=== PATIENT | female | born 1975 | race Caucasian/White ===

== ENCOUNTER 2019-03-01 00:17 | Emergency (ER) | payer MEDICAID, OTHER ==
[~2019-03-01] VITALS: Ht 162.6 cm; Wt 101.7 kg
[2019-03-01 01:15] LABS: BASOPHILS # (AUTO) 0.05 x10^3/uL (0-0.1); BASOPHILS % (AUTO) 1 % (0-1); EOSINOPHILS # (AUTO) 0.23 x10^3/uL (0-0.4); EOSINOPHILS % (AUTO) 3 % (1-7); LYMPHOCYTES % (AUTO) 33 % (22-44); MD NO; MEAN CORPUSCULAR HEMOGLOBIN 29.6 pg (27.0-34.8); MEAN CORPUSCULAR VOLUME 87.1 fL (80-100); MEAN PLATELET VOLUME 7.5 fL (7.4-10.4); MONOCYTES # (AUTO) 0.66 x10^3/uL (0.2-0.8); MONOCYTES % (AUTO) 8 % (2-9); NEUTROPHILS # (AUTO) 4.92 x10^3/uL (1.8-6.8); NEUTROPHILS % (AUTO) 56 % (42-75); PLATELET COUNT 280 x10^3/uL (130-400); RED BLOOD COUNT 4.42 x10^6/uL (3.82-5.3); RED CELL DISTRIBUTION WIDTH 14.2 % (9.6-15.2)
[2019-03-01 01:23] LABS: ALBUMIN 3.5 g/dL (3.4-5.0); ANION GAP 6 mmol/L (5-15); CALCIUM 8.7 mg/dL (8.5-10.1); CHLORIDE 107 mmol/L (98-107); CREATININE 0.85 mg/dL (0.55-1.02)
[2019-03-01 01:27] LABS: TROPONIN I < 0.015 ng/mL (0.000-0.045)
--- NOTE | 2019-03-01 01:37 | NUR ---
Pt report from Juan Luis rankin. No immediate needs from pt. Awaiting lab results.
--- NOTE | 2019-03-01 01:56 | NUR ---
This rn to d/c pt. Pt states she changed mind on steroid shot. This rn talked to md. awaiting meds.
[2019-03-01 02:00] VITALS: BP 136/81
[2019-03-01] MEDS ORDERED: TRIAMCINOLONE ACETONIDE 40 MG/ML, 1ML IM ONE (02:00)
--- NOTE | 2019-03-01 02:06 | NUR ---
Awaiting med from rx.
== END 2019-03-01 02:44 | disposition home or self-care (01) ==
LOC: ED 00:57
DX: R07.89 Other chest pain (principal); R06.02 Shortness of breath
CPT/HCPCS: 36415; 71045; 80048; 82040; 84484; 84703; 85025; 93005; 96372; 99284; J3301

== ENCOUNTER 2020-05-06 13:58 | Emergency (ER) | payer MEDICAID ==
[~2020-05-06] VITALS: Ht 162.6 cm; Wt 104.4 kg
--- NOTE | 2020-05-06 14:04 | NUR ---
Pt ambulatory to room from [facility]. Pt given UA cup and clean catch collection instructions. UA ordered per protocol.
--- NOTE | 2020-05-06 14:21 | NUR ---
THIS IS A 44 YEAR OLD FEMALE WHO C/O OF HISTORY OF FREQUENT UTIs, C/O OF RIGTH FLANK PAIN, AND DISCOLORED URINE X 7 DAYS. OBTAINED URINE AND SENT TO LAB
[2020-05-06] MEDS ORDERED: KETOROLAC 30 MG/1 ML ONE (14:26)
[2020-05-06] MEDS ORDERED: FAMOTIDINE 20 MG/2 ML ONE (14:27)
[2020-05-06] MEDS ORDERED: ONDANSETRON 2MG/ML, 2ML ONE (14:27)
[2020-05-06 14:28] LABS: HCG UR SG 1.026 (1.003-1.030); MICROSCOPIC INDICATED
[2020-05-06] MEDS ORDERED: FAMOTIDINE 20 MG/2 ML IV ONE (14:30)
[2020-05-06] MEDS ORDERED: SODIUM CHLORIDE 0.9% 1,000ML IVBOLUS ONE (14:30)
[2020-05-06] MEDS ORDERED: ONDANSETRON 2MG/ML, 2ML IVPush ONE (14:30)
[2020-05-06] MEDS ORDERED: SODIUM CHLORIDE FLUSH 10ML SYR IVF ONE (14:30)
[2020-05-06] MEDS ORDERED: KETOROLAC 30 MG/1 ML IVPush ONE (14:30)
[2020-05-06 14:41] LABS: MEAN CORPUSCULAR HEMOGLOBIN 29.3 pg (27.0-34.8); MEAN CORPUSCULAR HGB CONC 33.7 g/dL (32.4-35.8); MEAN PLATELET VOLUME 7.6 fL (7.4-10.4); PLATELET COUNT 203 x10^3/uL (130-400); RED BLOOD COUNT 4.11 x10^6/uL (3.82-5.3); RED CELL DISTRIBUTION WIDTH 14.3 % (9.6-15.2)
[2020-05-06 14:54] LABS: BASOPHILS # (AUTO) 0.04 x10^3/uL (0-0.1); BASOPHILS % (AUTO) 0 % (0-1); EOSINOPHILS # (AUTO) 0.07 x10^3/uL (0-0.4); EOSINOPHILS % (AUTO) 1 % (1-7); LYMPHOCYTES # (AUTO) 1.28 x10^3/uL (1-3.4); LYMPHOCYTES % (AUTO) 12 % (22-44); MD SCAN; MONOCYTES # (AUTO) 1.67 x10^3/uL (0.2-0.8); MONOCYTES % (AUTO) 16 % (2-9); NEUTROPHILS # (AUTO) 7.24 x10^3/uL (1.8-6.8); NEUTROPHILS % (AUTO) 70 % (42-75)
[2020-05-06 14:55] LABS: ALANINE AMINOTRANSFERASE 15 U/L (12-78); ALBUMIN 2.9 g/dL (3.4-5.0); ANION GAP 3 mmol/L (5-15); CALCIUM 9.4 mg/dL (8.5-10.1); CHLORIDE 103 mmol/L (98-107); CREATININE 1.36 mg/dL (0.55-1.02)
[2020-05-06 14:57] LABS: ALKALINE PHOSPHATASE 106 U/L (45-117); BILIRUBIN,TOTAL 0.6 mg/dL (0.2-1.0); TOTAL PROTEIN 7.8 g/dL (6.4-8.2)
[2020-05-06 15:21] VITALS: BP 120/78
--- NOTE | 2020-05-06 15:21 | NUR ---
PT STATES SHE FEELS BETTER, WARM BLANKET GIVEN, VERBALIZED NO NEEDS AT THIS TIME
--- NOTE | 2020-05-06 15:53 | NUR ---
Patient/Caregiver given discharge instructions and they have confirmed that they understand the instructions. Patient ambulatory with steady gait.
== END 2020-05-06 16:10 | disposition home or self-care (01) ==
LOC: ED 14:47
DX: N30.00 Acute cystitis without hematuria (principal); R10.11 Right upper quadrant pain; R11.2 Nausea with vomiting, unspecified; R19.7 Diarrhea, unspecified; F17.200 Nicotine dependence, unspecified, uncomplicated
CPT/HCPCS: 36415; 74021; 76700; 80053; 81001; 81025; 85025; 87077; 87086; 96361; 96374; 96375; 99285; J1885; J2405; J3490; J7030; 87106; 87186

== ENCOUNTER 2020-06-20 15:24 | Emergency (ER) | payer MEDICAID ==
[~2020-06-20] VITALS: Ht 162.6 cm; Wt 102.1 kg
[2020-06-20] MEDS ORDERED: KETOROLAC 30 MG/1 ML IM ONE (16:00)
[2020-06-20] MEDS ORDERED: METHOCARBAMOL 750 MG TABLET PO ONE (16:00)
--- NOTE | 2020-06-20 16:20 | NUR ---
PATIENT WALKED BACK FROM TRIAGE WITH CHIEF COMPLAINT OF UPPER BACK PAIN BETWEEN HER SHOULDER BLADES. PATIENT STATES SHE SNEEZED 3X DIETER NIGHT AND HER BACK POPPED THREE SEPARATE TIMES, SHE HAS BEEN HAVING PAIN EVER SINCE. PATIENT IS A&OX4, C/O 08/11 BACK PAIN. CALL LIGHT WITHIN REACH, SIDE RAILS UP X2, NO FURTHER NEEDS AT THIS TIME.
[2020-06-20] MEDS ORDERED: KETOROLAC 30 MG/1 ML ONE (16:26)
[2020-06-20] MEDS ORDERED: METHOCARBAMOL 750 MG TABLET ONE (16:26)
[2020-06-20 16:27] LABS: ALBUMIN 3.3 g/dL (3.4-5.0); ANION GAP 6 mmol/L (5-15); CALCIUM 9.3 mg/dL (8.5-10.1); CHLORIDE 103 mmol/L (98-107)
[2020-06-20 16:28] LABS: CREATININE 0.98 mg/dL (0.55-1.02)
--- NOTE | 2020-06-20 16:29 | NUR ---
Patient medicated per eMAR, call light within reach, side rails up x2, connected to vital sign machine, no further needs at this time.
[2020-06-20 17:29] VITALS: BP 124/75
--- NOTE | 2020-06-20 17:50 | NUR ---
Patient given discharge instructions, prescription and work note and they have confirmed that they understand the instructions, no questions. All patient belongings gathered by patient and taken. Patient ambulatory with steady gait to discharge desk.
== END 2020-06-20 17:52 | disposition home or self-care (01) ==
LOC: ED 17:05
DX: S23.3XXA Sprain of ligaments of thoracic spine, initial encounter (principal); R00.0 Tachycardia, unspecified; F17.200 Nicotine dependence, unspecified, uncomplicated; X58.XXXA Exposure to other specified factors, initial encounter; Y93.89 Activity, other specified; Y92.89 Other specified places as the place of occurrence of the external cause; Y99.8 Other external cause status
CPT/HCPCS: 36415; 72072; 80048; 82040; 93005; 96372; 99285; J1885